=== PATIENT | male | born 1980 | race Caucasian/White ===

== ENCOUNTER 2022-04-01 15:11 | Emergency (ER) | payer OTHER ==
[~2022-04-01] VITALS: Ht 175.3 cm; Wt 120.2 kg
[2022-04-01 15:13] VITALS: BP 146/72
--- NOTE | 2022-04-01 15:23 | NUR ---
PT AMB TO [facility]
--- NOTE | 2022-04-01 15:30 | NUR ---
BIB SELF C/O WEAKNESS, 7/10 MID CHEST PAIN, BOTH SHOUKLDER PAIN X 3 DAYS. BLOOD SUGAR 183 AT THIS TIME.PMH: DM, HTN, HLD
--- NOTE | 2022-04-01 16:16 | NUR ---
pt swabbed for covid(juan c) and flu. handed to research laboratory specialist
[2022-04-01 16:28] LABS: BASOPHILS % (AUTO) 0.4 % (0.0-2.0); EOSINOPHILS # (AUTO) 0.2 K/uL (0-0.4); EOSINOPHILS % (AUTO) 1.4 % (0.0-4.0); HEMATOCRIT 41.8 % (36-52); HEMOGLOBIN 14.2 g/dL (12.0-18.0); LYMPHOCYTES # (AUTO) 2.7 K/uL (2.0-11.5); MEAN CORPUSCULAR HEMOGLOBIN 32 pg (27-31); MEAN CORPUSCULAR HGB CONC 34 g/dL (33-37); MEAN CORPUSCULAR VOLUME 93.8 fL (80-94); MONOCYTES # (AUTO) 0.7 K/uL (0.8-1.0); MONOCYTES % (AUTO) 6.7 % (1.7-9.3); NEUTROPHILS # (AUTO) 7.6 K/uL (1.8-7.7); NEUTROPHILS % (AUTO) 67.5 % (42.2-75.2); PLATELET COUNT (AUTO) 259 K/uL (140-450); RED BLOOD CELL COUNT(AUTO) 4.45 MIL/uL (4.20-6.10); RED CELL DISTRIBUTION WIDTH 14.5 % (11.6-13.7); WHITE BLOOD COUNT (AUTO) 11.2 K/uL (4.8-10.8)
[2022-04-01 16:49] LABS: APPEARANCE,URINE CLEAR (CLEAR); BILIRUBIN,URINE NEGATIVE (NEGATIVE); BLOOD, URINE NEGATIVE (NEGATIVE); COLOR,URINE YELLOW (YELLOW); LEUKOCYTE ESTERASE ,URINE NEGATIVE (NEGATIVE); NITRITE, URINE NEGATIVE (NEGATIVE); UGLUCOSE NEGATIVE (NEGATIVE)
[2022-04-01 16:57] LABS: ALBUMIN 3.4 g/dL (3.4-5.0); ANION GAP 14.5 (8-16); ASPARTATE AMINOTRANSFERASE 26 U/L (15-37); CARBON DIOXIDE 28.3 mmol/L (21-32); CHLORIDE 105 mmol/L (98-107); CREATININE 0.9 mg/dL (0.6-1.3); GFR ARICAN-AMERICAN 119 mL/min (>90); GLUCOSE 214 mg/dL (74-106); MAGNESIUM 1.6 mg/dL (1.8-2.4); PHOSPHORUS 2.9 mg/dL (2.5-4.9); POTASSIUM 3.8 mmol/L (3.5-5.1); SODIUM SERUM 144 mmol/L (136-145); TOTAL BILIRUBIN 0.3 mg/dL (0.0-1.0); UREA NITROGEN, BLOOD 16 mg/dL (7-18)
[2022-04-01] MEDS ORDERED: ACETAMINOPHEN EXTRA STRENGTH 500 MG TAB PO ONE (17:05)
[2022-04-01] MEDS ORDERED: IBUPROFEN 600 MG TAB PO ONE (17:05)
[2022-04-01 17:08] LABS: BARBITURATE, URINE NEGATIVE ng/ml (NEG <=200); BENZODIAZEPINE, URINE NEGATIVE ng/mL (NEG <=200); CANNABINOID, URINE NEGATIVE ng/mL (NEG <=50); COCAINE, URINE NEGATIVE ng/mL (NEG <=300); OPIATE, URINE NEGATIVE ng/mL (NEG <=2000); PHENCYCLIDINE SCREEN,URINE NEGATIVE ng/mL (NEG <=25)
[2022-04-01] MEDS ORDERED: MAG SULF 2000 MG/WATER PREMIX 50 ML IV ONE (17:45)
--- NOTE | 2022-04-01 18:07 | NUR ---
Earnestine lazcano in [facility] - 04/01/22 at 1828 by [facility] Pt moved to bed 12.
--- NOTE | 2022-04-01 18:28 | NUR ---
Pt moved to bed 10.
[2022-04-01] MEDS ORDERED: ACETAMINOPHEN EXTRA STRENGTH 500 MG TAB ONE (18:59)
[2022-04-01] MEDS ORDERED: IBUPROFEN 600 MG TAB ONE (18:59)
--- NOTE | 2022-04-01 19:11 | NUR ---
REPORT GIVEN TO MILVIA CERON
[2022-04-01] MEDS ORDERED: ACET-10509 PO (20:51)
[2022-04-01] MEDS ORDERED: AMOX-1230 PO (20:51)
[2022-04-01 20:58] VITALS: BP 148/98
== END 2022-04-01 20:58 | disposition home or self-care (01) ==
LOC: MED 15:11
DX: J18.9 Pneumonia, unspecified organism (principal); Z20.822 Contact with and (suspected) exposure to COVID-19; E87.1 Hypo-osmolality and hyponatremia; E83.42 Hypomagnesemia
CPT/HCPCS: 36415; 71045; 80053; 80305; 81003; 83735; 83880; 84100; 84484; 85025; 85379; 87426; 87804; 93005; 96365; 96366; 99285; J3475; 81002